=== PATIENT | female | born 1995 | race Two or more races ===

== ENCOUNTER 2024-06-03 22:14 | Emergency (ER) | payer MEDICAID, OTHER ==
[~2024-06-03] VITALS: Ht 162.6 cm; Wt 59.0 kg
[2024-06-03 22:35] LABS: Basophils # (auto) 0.1 10 ^3/uL (0-0.2); Basophils % (auto) 0.6 % (0.0-2.0); Eosinophils # (auto) 0 10 ^3/uL (0-0.8); Eosinophils % (auto) 0.2 % (0.0-7.0); Hematocrit 38.6 % (36.0-46.0); Hemoglobin 12.8 g/dL (12.2-16.2); Lymphocytes # (auto) 2.4 10 ^3/uL (0.4-5.4); Lymphocytes % (auto) 21.1 % (10.0-50.0); Mean Corpuscular Hemoglobin 28.3 pg (28.0-32.0); Mean Corpuscular Hgb Conc. 33.2 g/dL (32.0-36.0); Mean Corpuscular Volume 85.3 fL (80.0-100.0); Monocytes # (auto) 1.1 10 ^3/uL (0-1.3); Monocytes % (auto) 9.9 % (0.0-12.0); Neutrophils # (auto) 7.9 10 ^3/uL (1.6-8.6); Neutrophils % (auto) 68.2 % (37.0-80.0); Nucleated Red Blood Cells % 0.1 %; Red Blood Cells 4.52 10^6/uL (4.0-5.20); Red Cell Distribution Width 14.2 % (11.8-14.3); White Blood Cell 11.5 10^3/uL (4.4-10.8)
[2024-06-03 22:52] LABS: Alanine Aminotransferase 15 U/L (7-40); Albumin 4.1 g/dL (3.2-4.8); Alkaline Phosphatase 83 U/L (46-116); Anion Gap 9 (5-15); Aspartate Aminotransferase 11 U/L (13-40); BUN/Creatinine Ratio 12.5 (10.0-20.0); Blood Urea Nitrogen 10 mg/dL (9-23); Calcium 9.4 mg/dL (8.7-10.4); Carbon Dioxide 22 mmol/L (20-30); Chloride 106 mmol/L (98-107); Glucose 105 mg/dL (74-106); Magnesium 1.5 mg/dL (1.6-2.6); Potassium 3.3 mmol/L (3.5-5.1); Sodium 137 mmol/L (136-145)
[2024-06-03 22:53] LABS: Bilirubin, Total 0.7 mg/dL (0.2-1.0); Total Protein 6.8 g/dL (5.7-8.2)
[2024-06-03 22:56] LABS: INR 1.16 (0.9-1.15); Prothrombin Time 12.2 sec (9.3-11.8)
[2024-06-04] VITALS: PULSE 108; RESP 14; TEMP 99.3; O2SAT 98
[2024-06-04] MEDS: POTASSIUM EFFERVESENT TAB 25 MEQ PO ONE (00:21)
[2024-06-04] MEDS: cefTRIAXone W LIDOCAINE 1 GM IM IM ONE ×2 (00:31→00:32)
[2024-06-04] MEDS: cefTRIAXone SOD 1,000 MG VL ONE (00:31)
[2024-06-04 01:37] VITALS: BP 115/77; PULSE 102; RESP 99; O2SAT 18
[2024-06-04] MEDS ORDERED: AUG875T PO (01:38)
[2024-06-04] MEDS ORDERED: AZITTAB2 PO (01:38)
== END 2024-06-04 01:45 | disposition home or self-care (01) ==
LOC: ER 22:14
DX: R07.89 Other chest pain (principal); J18.9 Pneumonia, unspecified organism; Z79.899 Other long term (current) drug therapy
CPT/HCPCS: 36415; 71045; 80053; 83735; 84484; 85025; 85610; 85730; 93005; 96372; 99285; J0696

== ENCOUNTER 2024-06-19 21:56 | Emergency (ER) | payer MEDICAID ==
[~2024-06-19] VITALS: Ht 162.6 cm; Wt 59.3 kg
[~2024-06-19 21:56] MED LIST: AUG875T PO; AZITTAB2 PO
[2024-06-20 01:26] VITALS: BP 139/90; PULSE 113; RESP 16; TEMP 97.9; O2SAT 98
[2024-06-20] MEDS: LIDOCAINE VISCOUS 2% 15ML UD MT ONE (01:33)
== END 2024-06-20 01:49 | disposition home or self-care (01) ==
LOC: ER 21:56
DX: T16.1XXA Foreign body in right ear, initial encounter (principal); Z79.899 Other long term (current) drug therapy; W44.8XXA Other foreign body entering into or through a natural orifice, initial encounter; Y93.89 Activity, other specified; Y92.89 Other specified places as the place of occurrence of the external cause; Y99.8 Other external cause status